=== PATIENT | female | born 1955 | race Two or more races ===

== ENCOUNTER 2017-09-24 09:31 | Day surgery (SDC) | payer BC ==
[2017-09-22 10:48] VITALS: BMI 22.8
[~2017-09-24 09:31] MED LIST: LACTATED RINGERS 1,000 ML IV SCH; LIDOCAINE 1% 20 ML VIAL (10MG/ML) FOR IV START INTRADERMA PRN
[2017-09-24 10:12] VITALS: TEMP 98.7
[2017-09-24] MEDS ORDERED: SCOPOLAMINE 1.5MG/72HR PATCH TRANSDERM ONE (10:36)
[2017-09-24] MEDS ORDERED: DEXAMETHASONE SOD PHOS (MDV) 100 MG/10 ML VIAL IVP ONE (10:37)
[2017-09-24] MEDS ORDERED: ONDANSETRON 4 MG/2 ML VIAL IVP ONE (10:38)
[2017-09-24] MEDS ORDERED: PROPOFOL 10 MG/ML 20 ML VIAL IV ONE (11:26)
[2017-09-24] MEDS ORDERED: LIDOCAINE 1% INJ 10MG/ML (20 ML MDV) ONE (11:26)
--- NOTE | 2017-09-24 11:34 | P.GSHP ---
History of Present Illness H&P Date: 09/24/17 Chief Complaint: Screening colonoscopy This is a 62-year-old female referred from Eduard Diez. Patient rents today for screening colonoscopy. Patient denies any significant GI complaints. Past Medical History Past Medical History: No Reported History Additional Past Medical History / Comment(s): seasonal allergies, past hx of glaucoma, no longer needing rx History of Any Multi-Drug Resistant Organisms: None Reported Past Surgical History: Breast Surgery, Tubal Ligation Additional Past Surgical History / Comment(s): nasal surgery polyps removed, benign aria breast bx, D&C Past Anesthesia/Blood Transfusion Reactions: No Reported Reaction Smoking Status: Current every day smoker - Past Family History Mother Family Medical History: Deep Vein Thrombosis (DVT) Medications and Allergies Home Medications Medication Instructions Recorded Confirmed Type Loratadine [Alavert] 10 mg PO DAILY 12/23/14 09/24/17 History PARoxetine [Paxil] 20 mg PO QAM 12/23/14 09/24/17 History Allergies Allergy/AdvReac Type Severity Reaction Status Date / Time gatifloxacin [From Tequin] Allergy ruptured Verified 09/22/17 10:41 tendon Penicillins Allergy Rash/Hives Verified 09/22/17 10:41 Surgical - Exam Vital Signs Temp Pulse Resp BP Pulse Ox 98.7 F 63 16 126/77 100 09/24/17 10:10 09/24/17 10:10 09/24/17 10:10 09/24/17 10:10 09/24/17 10:10 - General well developed, no distress - Eyes PERRL - ENT normal pinna - Neck no masses - Respiratory normal expansion - Cardiovascular Rhythm: regular - Abdomen Abdomen: soft, non tender Assessment and Plan Assessment: We'll perform screening colonoscopy
--- NOTE | 2017-09-24 11:54 | P.OP ---
Date of Procedure: 09/24/17 Preoperative Diagnosis: Screening colonoscopy Postoperative Diagnosis: Diverticulosis Right colon polyp External hemorrhoids Procedure(s) Performed: Colonoscopy Anesthesia: MAC Surgeon: Basim Wilson Pathology: other (Right colon) Condition: stable Disposition: PACU Description of Procedure: The patient's placed on the endoscopy table in the lateral position. She received IV sedation. Digital rectal exam was performed which revealed external hemorrhoids.. The flexible colonoscope placed patient anus passed throughout the entire colon. The ileocecal valve was visualized. Cecum appeared normal. In the right colon was small polyp was removed the forcep. The scope was withdrawn remainder the transverse colon appeared normal. In the descending; was mild diverticular changes. The scope was brought back the rectum and this appeared normal. Scope was withdrawn for patient.
[2017-09-24 12:00] VITALS: RESP 18
[2017-09-24 12:29] VITALS: BP 126/59; PULSE 62
== END 2017-09-24 12:47 | disposition home or self-care (01) ==
LOC: ORWHC2ENDO 09:31
PROVIDERS: ATTEND Surgery
DX: Z12.11 Encounter for screening for malignant neoplasm of colon (principal); K57.30 Diverticulosis of large intestine without perforation or abscess without bleeding; K63.5 Polyp of colon; K64.4 Residual hemorrhoidal skin tags; E78.5 Hyperlipidemia, unspecified; K21.9 Gastro-esophageal reflux disease without esophagitis; J30.2 Other seasonal allergic rhinitis; Z98.51 Tubal ligation status; Z79.899 Other long term (current) drug therapy; F17.200 Nicotine dependence, unspecified, uncomplicated; Z88.1 Allergy status to other antibiotic agents; Z88.0 Allergy status to penicillin
CPT/HCPCS: 88305; 45380; J2405; J2001; J1100; J2704

== ENCOUNTER 2021-10-19 17:57 | Observation (INO) | payer BC, MEDICARE ==
[2021-10-19] MEDS ORDERED: ASPIRIN 81 MG PO STA (19:27)
[2021-10-19 19:54] LABS: Basophils % (A) 1 %; Eosinophils # (A) 0.3 k/uL (0-0.7); Eosinophils % (A) 3 %; HCT 44.4 % (34.0-46.0); HGB 14.3 gm/dL (11.4-16.0); Lymphocytes # (A) 1.7 k/uL (1.0-4.8); Lymphocytes % (A) 18 %; MCH 30.2 pg (25.0-35.0); MCHC 32.2 g/dL (31.0-37.0); MCV 93.8 fL (80.0-100.0); Mean Platelet Volume 7.3; Monocytes # (A) 0.5 k/uL (0-1.0); Monocytes % (A) 5 %; Neutrophils # (A) 6.5 k/uL (1.3-7.7); Neutrophils % (A) 72 %; Platelet Count 224 k/uL (150-450); RBC 4.74 m/uL (3.80-5.40); RDW 12.3 % (11.5-15.5); WBC 9.1 k/uL (3.8-10.6)
[2021-10-19 20:04] LABS: Albumin 4.6 g/dL (3.5-5.0); Calcium 9.8 mg/dL (8.4-10.2); Potassium 4.4 mmol/L (3.5-5.1); Total Bilirubin 0.5 mg/dL (0.2-1.3); Total Protein 7.5 g/dL (6.3-8.2)
--- NOTE | 2021-10-19 20:12 | XR ---
EXAMINATION TYPE: XR chest 2V DATE OF EXAM: 10/19/2021 8:05 PM COMPARISON:None CLINICAL INDICATION:Female, 66 years old with history of Chest Pain; TECHNIQUE: Frontal and lateral views of the chest. FINDINGS: Lungs/Pleura: There is no evidence of pleural effusion, focal consolidation, or pneumothorax. Pulmonary vascularity: Unremarkable. Heart/mediastinum: Cardiomediastinal silhouette is unremarkable. Musculoskeletal: No acute osseous pathology. IMPRESSION: No acute cardiopulmonary disease/process.
[2021-10-19 20:44] LABS: INR 0.9 (<1.2); Prothrombin Time 10.2 sec (9.0-12.0)
[2021-10-19 20:51] LABS: Partial Thromboplastin Time 21.8 sec (22.0-30.0)
[2021-10-19] MEDS ORDERED: NALOXONE 0.4 MG/ML 1 ML VIAL IV PRN (22:26)
--- NOTE | 2021-10-19 22:35 | ED ---
General Adult HPI - General Chief complaint: Chest Pain Stated complaint: Chest pain,ear pain Time Seen by Provider: 10/19/21 19:26 Source: patient, RN notes reviewed, old records reviewed Mode of arrival: ambulatory Limitations: no limitations - History of Present Illness Initial comments: Patient is a 66-year-old female with past medical history remarkable for tobacco use, who presents emergency Department complaining of acute onset of chest pain. It occurred at approximate 5 PM. I evaluated the patient approximate 7:30 PM after she was placed in a room. She scribes the pain as left-sided, sharp and throbbing that radiated to her bilateral neck. Denies any radiation of left shoulder back. Denies any shortness of breath. The pain lasted on and off for 30 minutes and then self resolved. Denies any cough, fevers, abdominal pain, nausea, vomiting. Denies any lightheadedness. Has no other acute complaint at this time. His no known cardiac history, however states she has had multiple stress tests in the past but has been quite some years. Presents to the emergency department over concern for the chest pain. I evaluated the patient when she was placed in a room.Patient states her chest pain is currently resolved. - Related Data Home Medications Medication Instructions Recorded Confirmed Loratadine [Alavert] 10 mg PO DAILY 12/23/14 10/19/21 PARoxetine [Paxil] 20 mg PO DAILY 12/23/14 10/19/21 Cholecalciferol [Vitamin D3 (25 25 mcg PO DAILY 10/19/21 10/19/21 Mcg = 1000 Iu)] Fenofibrate Nanocrystallized 145 mg PO DAILY 10/19/21 10/19/21 [Fenofibrate] Omeprazole Magnesium [PriLOSEC OTC] 20 mg PO DAILY 10/19/21 10/19/21 Oxybutynin Chloride [Ditropan] 5 mg PO DAILY 10/19/21 10/19/21 Allergies Allergy/AdvReac Type Severity Reaction Status Date / Time gatifloxacin [From Tequin] Allergy ruptured Verified 10/19/21 20:50 tendon Penicillins Allergy Rash/Hives Verified 10/19/21 20:50 [id number] Reductase Allergy Unknown Verified 10/19/21 20:50 Inhibitor Review of Systems ROS Statement: Those systems with pertinent positive or pertinent negative responses have been documented in the HPI. Review of Systems: CONST: Denies fever EYES: Denies blurry vision ENT: Denies nasal congestion C/V: Endorses resolved chest pain. RESP: Denies shortness of breath GI: Denies abdominal pain : Denies dysuria SKIN: Denies rash. MSK: Denies joint pain. NEURO: Denies headache ROS Other: All systems not noted in ROS Statement are negative. Past Medical History Past Medical History: No Reported History Additional Past Medical History / Comment(s): seasonal allergies, past hx of glaucoma, no longer needing rx History of Any Multi-Drug Resistant Organisms: None Reported Past Surgical History: Breast Surgery, Tubal Ligation Additional Past Surgical History / Comment(s): nasal surgery polyps removed, benign aria breast bx, D&C Past Anesthesia/Blood Transfusion Reactions: No Reported Reaction Past Psychological History: Panic Disorder Smoking Status: Current every day smoker Past Alcohol Use History: None Reported Past Drug Use History: None Reported - Past Family History Mother Family Medical History: Deep Vein Thrombosis (DVT) General Exam - General Exam Comments Initial Comments: General: Appears in no acute distress. HEAD: Normal with no signs of head trauma. EYES: PERRLA, EOMI, conjunctiva normal, no discharge. ENT: Hearing grossly intact, normal oropharynx. RESPIRATORY: Clear breath sounds bilaterally. No wheezes, rales, or rhonchi. C/V: Regular rate and rhythm. S1 and S2 auscultated, no edema, peripheral pul ses 2+ and intact throughout ABD: Abd is soft, nontender, nondistended EXT: Normal range of motion, no obvious deformity SKIN: No rashes or lesions observed on exposed skin. NEURO: Alert and oriented 4. Limitations: no limitations Course Vital Signs 10/19/21 10/19/21 10/19/21 18:27 19:55 20:30 Temperature 98.9 F Pulse Rate 75 63 81 Pulse Rate [ 65 Gate Clerk ] Respiratory 18 20 19 Rate Blood Pressure 142/90 135/72 125/64 O2 Sat by Pulse 96 98 96 Oximetry 10/19/21 21:45 Temperature Pulse Rate 76 Pulse Rate [ Gate Clerk ] Respiratory 19 Rate Blood Pressure 131/56 O2 Sat by Pulse 96 Oximetry Medical Decision Making - Medical Decision Making Based on patient's presentation and physical exam, I'm concerned for cardio pulmonary process for current symptoms, cannot rule out ACS. Chest pain has since resolved though. We will obtain a cardiac workup including EKG, chest x-ray, basic labs. She'll be given 324 mg of aspirin. She was in agreement this plan. EKG showed no signs of acute ischemia. Chest x-ray revealed no acute cardiopulmonary process. Laboratory studies are remarkable for a negative troponin, negative Covid sob. Creatinine is slightly elevated to 1.08. Remainder of the labs are unremarkable. Vital sensory and stable throughout her stay in the emergency department. On reevaluation, patient remains stable. Patient's heart score is moderate at 5. I did offer observation admission for trending troponins and telemetry monitoring which she accepted. Patient was therefore admitted in stable condition to observation. Cardiology was consulted. I ordered an echo. I spoke with the admitting team under Dr. Plunkett who accepted the admission. - Lab Data Result diagrams: 10/19/21 19:42 10/19/21 19:42 Lab Results 10/19/21 10/19/21 10/19/21 Range/Units 19:42 19:42 19:42 WBC 9.1 (3.8-10.6) k/uL RBC 4.74 (3.80-5.40) m/uL Hgb 14.3 (11.4-16.0) gm/dL Hct 44.4 (34.0-46.0) % MCV 93.8 (80.0-100.0) fL MCH 30.2 (25.0-35.0) pg MCHC 32.2 (31.0-37.0) g/dL RDW 12.3 (11.5-15.5) % Plt Count 224 (150-450) k/uL MPV 7.3 Neutrophils % 72 % Lymphocytes % 18 % Monocytes % 5 % Eosinophils % 3 % Basophils % 1 % Neutrophils # 6.5 (1.3-7.7) k/uL Lymphocytes # 1.7 (1.0-4.8) k/uL Monocytes # 0.5 (0-1.0) k/uL Eosinophils # 0.3 (0-0.7) k/uL Basophils # 0.0 (0-0.2) k/uL PT 10.2 (9.0-12.0) sec INR 0.9 (<1.2) APTT 21.8 L (22.0-30.0) sec Sodium 140 (137-145) mmol/L Potassium 4.4 (3.5-5.1) mmol/L Chloride 104 (98-107) mmol/L Carbon Dioxide 26 (22-30) mmol/L Anion Gap 10 mmol/L BUN 16 (7-17) mg/dL Creatinine 1.08 H (0.52-1.04) mg/dL Est GFR (CKD-EPI)AfAm 62 (>60 ml/min/1.73 sqM) Est GFR (CKD-EPI)NonAf 54 (>60 ml/min/1.73 sqM) Glucose 104 H (74-99) mg/dL Calcium 9.8 (8.4-10.2) mg/dL Magnesium 2.0 (1.6-2.3) mg/dL Total Bilirubin 0.5 (0.2-1.3) mg/dL AST 29 (14-36) U/L ALT 23 (4-34) U/L Alkaline Phosphatase 67 (38-126) U/L Troponin I (0.000-0.034) ng/mL Total Protein 7.5 (6.3-8.2) g/dL Albumin 4.6 (3.5-5.0) g/dL Coronavirus (PCR) (Not Detectd) 10/19/21 10/19/21 Range/Units 19:42 21:35 WBC (3.8-10.6) k/uL RBC (3.80-5.40) m/uL Hgb (11.4-16.0) gm/dL Hct (34.0-46.0) % MCV (80.0-100.0) fL MCH (25.0-35.0) pg MCHC (31.0-37.0) g/dL RDW (11.5-15.5) % Plt Count (150-450) k/uL MPV Neutrophils % % Lymphocytes % % Monocytes % % Eosinophils % % Basophils % % Neutrophils # (1.3-7.7) k/uL Lymphocytes # (1.0-4.8) k/uL Monocytes # (0-1.0) k/uL Eosinophils # (0-0.7) k/uL Basophils # (0-0.2) k/uL PT (9.0-12.0) sec INR (<1.2) APTT (22.0-30.0) sec Sodium (137-145) mmol/L Potassium (3.5-5.1) mmol/L Chloride (98-107) mmol/L Carbon Dioxide (22-30) mmol/L Anion Gap mmol/L BUN (7-17) mg/dL Creatinine (0.52-1.04) mg/dL Est GFR (CKD-EPI)AfAm (>60 ml/min/1.73 sqM) Est GFR (CKD-EPI)NonAf (>60 ml/min/1.73 sqM) Glucose (74-99) mg/dL Calcium (8.4-10.2) mg/dL Magnesium (1.6-2.3) mg/dL Total Bilirubin (0.2-1.3) mg/dL AST (14-36) U/L ALT (4-34) U/L Alkaline Phosphatase (38-126) U/L Troponin I <0.012 (0.000-0.034) ng/mL Total Protein (6.3-8.2) g/dL Albumin (3.5-5.0) g/dL Coronavirus (PCR) Not Detected (Not Detectd) - EKG Data -: EKG Interpreted by Me EKG Comments: 12-lead Electrocardiogram Interpretation Note EKG was reviewed and interpreted by myself. 12-lead ECG performed at 1838 is interpreted by me as revealing normal sinus rhythm at a rate of 64 beats per minute. [place] is normal. MI interval is 162 ms, QRS duration is 80 ms, QTc is 420 ms.. There were no ST or T wave abnormalities to suggest myocardial ischemia or injury. R wave progression across the precordium was satisfactory. By my interpretation this EKG is non-diagnostic for acute ischemia. Disposition Clinical Impression: Chest pain Disposition: ADMITTED IP TO THIS HOSP Condition: Stable Referrals: Jori Boyd MD [Primary Care Provider] - 1-2 days
[2021-10-19] MEDS: HEPARIN SODIUM,PORCINE/PF 5,000 UNIT/0.5 ML SYRINGE SQ SCH (23:42)
[2021-10-20 04:11] VITALS: RESP 18
[2021-10-20 04:34] LABS: Basophils # (A) 0.1 k/uL (0-0.2); Basophils % (A) 1 %; Eosinophils # (A) 0.3 k/uL (0-0.7); Eosinophils % (A) 4 %; HGB 13.7 gm/dL (11.4-16.0); Lymphocytes % (A) 29 %; MCH 30.6 pg (25.0-35.0); MCHC 32.6 g/dL (31.0-37.0); Mean Platelet Volume 7.5; Monocytes # (A) 0.5 k/uL (0-1.0); Monocytes % (A) 7 %; Neutrophils # (A) 3.9 k/uL (1.3-7.7); Neutrophils % (A) 57 %; Platelet Count 198 k/uL (150-450); RBC 4.47 m/uL (3.80-5.40); RDW 12.5 % (11.5-15.5); WBC 6.9 k/uL (3.8-10.6)
[2021-10-20 04:45] LABS: Calcium 9.1 mg/dL (8.4-10.2); Potassium 4.1 mmol/L (3.5-5.1)
[2021-10-20] MEDS ORDERED: PANTOPRAZOLE 40 MG TABLET PO SCH (07:30)
[2021-10-20 08:39] VITALS: BP 126/64; PULSE 68; TEMP 99.1
[2021-10-20] MEDS ORDERED: LORATADINE 10 MG TAB PO SCH (09:00)
[2021-10-20] MEDS ORDERED: PARoxetine 20 MG TAB PO SCH (09:00)
[2021-10-20] MEDS ORDERED: OXYBUTYNIN CHLORIDE 5 MG TAB PO SCH (09:00)
--- NOTE | 2021-10-20 10:19 | P.CRDCN ---
History of Present Illness Consult date: 10/20/21 Consult reason: chest pain History of present illness: The patient is a 66-year-old female with past medical history of hypertriglyceridemia, obstructive sleep apnea, and current smoker, who presented to the emergency room with new onset of chest discomfort. She states this pain was midsternal and sharp in nature. She states this did radiate up her neck bilaterally. She states she had had this pain previously, which prompted a cardiac workup approximately 15 years prior. Her reasoning for presenting to the emergency room if it did not resolve as it did previously. She denies any associated shortness of breath. No dizziness, lightheadedness, or diaphoresis. DIAGNOSTICS: EKG 2 show sinus mechanism without ST or T-wave abnormalities Troponins negative 3 Chest x-ray shows no acute cardiopulmonary process Laboratory data: CBC 6.9, hemoglobin 13.7, hematocrit 42.0, platelet 198, sodium 138, potassium 4.1, BUN 17, creatinine 0.90, magnesium 2.0, AST 29, ALT 23, doe virus testing negative Echocardiogram reveals normal LV function without valvular abnormalities PAST MEDICAL HISTORY: Obstructive sleep apnea, hypertriglyceridemia, current 1 pack per day smoker REVIEW OF SYSTEMS: No fever or chills. No cough or expectoration. No diaphoresis. Patient denies headache, dizziness, blurred vision, double vision. Patient denies any stomach discomfort. No nausea, vomiting. No hematochezia. No hematemesis. Denies any black stools or blood in his stools. Denies dysuria or hematuria. No muscle weakness or numbness. No shortness of breath. No orthopnea. No heart racing or fluttering. No recurrent chest pain PHYSICAL EXAMINATION: This is a 66-year-old female in no apparent distress at the time of my examination. HEENT: Head is atraumatic, normocephalic. Pupils are equal, round. Sclerae anicteric. Conjunctivae are clear. Mucous membranes of the mouth are moist. Neck is supple. There is no jugular venous distention. No carotid bruit is heard. CHEST EXAMINATION: Lungs are diminished to auscultation. No chest wall te nderness is noted on palpation or with deep breathing. HEART EXAMINATION: Heart regular rate and rhythm. S1, S2 heard. No murmurs, gallops or rub. ABDOMEN: Soft, nontender. Bowel sounds are heard. No organomegaly noted. EXTREMITIES: 2+ peripheral pulses with no evidence of peripheral edema and no calf tenderness noted. NEUROLOGIC EXAMINATION: Patient is awake, alert and oriented x3. FINAL ASSESSMENT AND PLAN: Chest pain, atypical Current smoker Hypertriglyceridemia, currently on fenofibrate History of statin intolerance PLAN: Hemoglobin A1C Lipid profile Start low dose rosuvastatin as she has a history of intolerance to simvastatin and atorvastatin Patient may be discharged from the cardiology perspective She will followup outpatient in 2 weeks The patient has been seen and evaluated by content writer and coordinating physician. Plan of care has been reviewed and agreed upon by Dr Avina. sharp pain, radiates up carotid Past Medical History Past Medical History: No Reported History, Sleep Apnea/CPAP/BIPAP Additional Past Medical History / Comment(s): seasonal allergies, past hx of glaucoma, no longer needing rx, uses CPAP History of Any Multi-Drug Resistant Organisms: None Reported Past Surgical History: Breast Surgery, Tubal Ligation Additional Past Surgical History / Comment(s): nasal surgery polyps removed, benign aria breast bx, D&C Past Anesthesia/Blood Transfusion Reactions: No Reported Reaction Past Psychological History: Panic Disorder Smoking Status: Current every day smoker Past Alcohol Use History: Occasional Additional Past Alcohol Use History / Comment(s): SMOKES 1PPD FROM AGE 16 Past Drug Use History: None Reported - Past Family History Mother Family Medical History: Deep Vein Thrombosis (DVT) Medications and Allergies Home Medications Medication Instructions Recorded Confirmed Type Loratadine [Alavert] 10 mg PO DAILY 12/23/14 10/19/21 History PARoxetine [Paxil] 20 mg PO DAILY 12/23/14 10/19/21 History Cholecalciferol [Vitamin D3 (25 25 mcg PO DAILY 10/19/21 10/19/21 History Mcg = 1000 Iu)] Fenofibrate Nanocrystallized 145 mg PO DAILY 10/19/21 10/19/21 History [Fenofibrate] Omeprazole Magnesium [PriLOSEC OTC] 20 mg PO DAILY 10/19/21 10/19/21 History Oxybutynin Chloride [Ditropan] 5 mg PO DAILY 10/19/21 10/19/21 History Rosuvastatin Calcium [Crestor] 10 mg PO DAILY #30 tab 10/20/21 Rx Allergies Allergy/AdvReac Type Severity Reaction Status Date / Time gatifloxacin [From Tequin] Allergy ruptured Verified 10/19/21 20:50 tendon Penicillins Allergy Rash/Hives Verified 10/19/21 20:50 [id number] Reductase Allergy Unknown Verified 10/19/21 20:50 Inhibitor Physical Exam Vitals: Vital Signs Temp Pulse Pulse Pulse Resp BP BP 10/20/21 07:00 99.1 F 68 18 126/64 10/20/21 02:35 98.7 F 77 18 106/49 10/20/21 02:00 66 16 10/19/21 23:43 66 16 10/19/21 23:36 98.2 F 66 16 97/45 10/19/21 22:43 80 19 105/56 10/19/21 21:45 76 19 131/56 10/19/21 20:30 81 19 125/64 10/19/21 19:55 63 65 20 135/72 10/19/21 18:27 98.9 F 75 18 142/90 Pulse Ox 10/20/21 07:00 98 10/20/21 02:35 98 10/20/21 02:00 10/19/21 23:43 10/19/21 23:36 97 10/19/21 22:43 97 10/19/21 21:45 96 10/19/21 20:30 96 10/19/21 19:55 98 10/19/21 18:27 96 Intake and Output 10/19/21 10/20/21 10/20/21 22:59 06:59 14:59 Intake Total 0 Balance 0 Intake: Oral 0 Other: Voiding Method Toilet # Voids 1 Weight 83.007 kg 83.007 kg Results 10/20/21 03:43 10/20/21 03:43 Cardiac Enzymes 10/19/21 10/19/21 10/19/21 Range/Units 19:42 19:42 23:34 AST 29 (14-36) U/L Troponin I <0.012 <0.012 (0.000-0.034) ng/mL 10/20/21 Range/Units 03:43 AST (14-36) U/L Troponin I <0.012 (0.000-0.034) ng/mL Coagulation 10/19/21 Range/Units 19:42 PT 10.2 (9.0-12.0) sec APTT 21.8 L (22.0-30.0) sec CBC 10/19/21 10/20/21 Range/Units 19:42 03:43 WBC 9.1 6.9 (3.8-10.6) k/uL RBC 4.74 4.47 (3.80-5.40) m/uL Hgb 14.3 13.7 (11.4-16.0) gm/dL Hct 44.4 42.0 (34.0-46.0) % Plt Count 224 198 (150-450) k/uL Comprehensive Metabolic Panel 10/19/21 10/20/21 Range/Units 19:42 03:43 Sodium 140 138 (137-145) mmol/L Potassium 4.4 4.1 (3.5-5.1) mmol/L Chloride 104 104 (98-107) mmol/L Carbon Dioxide 26 28 (22-30) mmol/L BUN 16 17 (7-17) mg/dL Creatinine 1.08 H 0.90 (0.52-1.04) mg/dL Glucose 104 H 106 H (74-99) mg/dL Calcium 9.8 9.1 (8.4-10.2) mg/dL AST 29 (14-36) U/L ALT 23 (4-34) U/L Alkaline Phosphatase 67 (38-126) U/L Total Protein 7.5 (6.3-8.2) g/dL Albumin 4.6 (3.5-5.0) g/dL Current Medications Generic Name Dose Route Start Last Admin Trade Name Freq PRN Reason Stop Dose Admin Heparin Sodium (Porcine) 5,000 unit 10/20/21 00:00 10/19/21 23:42 Heparin Sodium,Porcine/Pf 5,000 Unit/0.5 Ml Syringe SQ 5,000 unit Q8HR CRAIG Administration Loratadine 10 mg 10/20/21 09:00 Loratadine 10 Mg Tab PO DAILY [facility] Naloxone HCl 0.2 mg 10/19/21 22:26 Naloxone 0.4 Mg/Ml 1 Ml Vial IV Q2M PRN Opioid Reversal Oxybutynin Chloride 5 mg 10/20/21 09:00 Oxybutynin Chloride 5 Mg Tab PO DAILY [facility] Pantoprazole Sodium 40 mg 10/20/21 07:30 Pantoprazole 40 Mg Tablet PO AC-BRKFST [facility] Paroxetine HCl 20 mg 10/20/21 09:00 Paroxetine 20 Mg Tab PO DAILY CRAIG Intake and Output 10/19/21 10/20/21 10/20/21 22:59 06:59 14:59 Intake Total 0 Balance 0 Intake: Oral 0 Other: Voiding Method Toilet # Voids 1 Weight 83.007 kg 83.007 kg 10/20/21 03:43 10/20/21 03:43
[2021-10-20] MEDS: HEPARIN SODIUM,PORCINE/PF 5,000 UNIT/0.5 ML SYRINGE SQ SCH (11:19)
--- NOTE | 2021-10-20 12:37 | ECHOF ---
Referral Reason:chest pain MEASUREMENTS -------- HEIGHT: 172.7 cm WEIGHT: 83.0 kg BP: 106/49 IVSd: 1.1 cm (0.6 - 1.1) LVIDd: 4.5 cm (3.9 - 5.3) LVPWd: 1.1 cm (0.6 - 1.1) EDV(Teich): 92 ml IVSs: 1.3 cm LVIDs: 3.4 cm LVPWs: 1.5 cm %IVS Thck: 18 % ESV(Teich): 49 ml EF(Teich): 47 % %FS: 23 % SV(Teich): 43 ml LA Diam: 3.6 cm (2.7 - 3.8) RVIDd: 3.2 cm (< 3.3) LALs A4C: 5.2 cm LAAs A4C: 18.0 cm LAESV A-L A4C: 53 ml LAESV MOD A4C: 50 ml LALs A2C: 5.0 cm LAAs A2C: 17.0 cm LAESV A-L A2C: 49 ml LAESV MOD A2C: 46 ml LAESV(A-L): 52 ml LAESV Index (A-L): 26.57 ml/m Ao Diam: 3.1 cm (2.0 - 3.7) AV Cusp: 1.9 cm (1.5 - 2.6) EPSS: 0.3 cm MV E Riki: 1.07 m/s MV DecT: 253 ms MV Dec Letcher: 4.2 m/s MV A Riki: 1.18 m/s MV E/A Ratio: 0.91 MV PHT: 74 ms AV Vmax: 1.37 m/s AV maxP.47 mmHg TR Vmax: 2.39 m/s TR maxP.92 mmHg RAP: 5.00 mmHg RVSP: 27.92 mmHg MV EF SLOPE: 68.83 mm/s (70 - 150) MV EXCURSION: 15.62 mm (> 18.000) FINDINGS -------- Sinus rhythm. This was a technically adequate study. The left ventricular size is normal. There is borderline concentric left ventricular hypertrophy. Overall left ventricular systolic function is normal with, an EF between 60 - 65 %. The right ventricle is normal in size. Normal LA size by volume 22+/-6 ml/m2. The right atrium is normal in size. Interatrial and interventricular septum intact. The aortic valve is trileaflet, and appears structurally normal. No aortic stenosis or regurgitation. Mild mitral regurgitation is present. Mild tricuspid regurgitation present. Right ventricular systolic pressure is normal at < 35 mmHg. The pulmonic valve is normal. The aortic root size is normal. IVC Not well visulized. There is no pericardial effusion. CONCLUSIONS -------- 1. The left ventricular size is normal. 2. There is borderline concentric left ventricular hypertrophy. 3. Overall left ventricular systolic function is normal with, an EF between 60 - 65 %. 4. The aortic valve is trileaflet, and appears structurally normal. No aortic stenosis or regurgitati on. 5. Mild mitral regurgitation is present. 6. Mild tricuspid regurgitation present. 7. There is no pericardial effusion. COUNTER CASER: Sanjuanita Rivas RDCS
--- NOTE | 2021-10-20 14:03 | P.HPIM ---
History of Present Illness H&P Date: 10/20/21 This will provide both H&P and discharge summary This is a 66-year-old pleasant female, patient of Dr. Boyd. History of obstructive sleep apnea, current tobacco use, hypertriglyceridemia, who was seen in emergency room secondary to new onset of chest discomfort. This is noted in the midsternal region, radiating to the neck area. Patient has minimal cough, no fever no chills, he had no prior history of CAD, however she had a cardiac workup approximately 15 years ago which turned out to be okay. Patient's pain lasted 30 minutes, this was gradually dissipated, and started when she was in the bathroom. She had received a call with vaccination, with the first to see this, January 2021, In the emergency room, EKG 2 serially done, no acute changes, troponin 3, negative, will repeat PCR negative, chest x-ray is unremarkable. Consult made with cardiology. Patient denies any history of PE DVT, no COPD, that's formally diagnosed to her, and no history of CHF. Review of Systems Constitutional: Reports as per HPI, Denies anorexia, Denies chills, Denies chronic headaches, Denies chronic pain, Denies daytime sleepiness, Denies fatigue, Denies fever, Denies lethargy, Denies malaise, Denies night sweats, Denies poor appetite, Denies sweats, Denies weakness, Denies weight gain, Denies weight loss Ears, nose, mouth and throat: Reports as per HPI, Denies epistaxis, Denies odynophagia, Denies vertigo Cardiovascular: Reports as per HPI Respiratory: Reports congestion, Denies cough, Denies cough with sputum, Denies dyspnea, Denies hemoptysis, Denies home oxygen, Denies pain on inspiration Gastrointestinal: Reports as per HPI, Denies constipation, Denies hematemesis, Denies hematochezia, Denies nausea, Denies vomiting Genitourinary: Reports as per HPI Menstruation: Reports as per HPI, Reports postmenopausal Musculoskeletal: Reports as per HPI, Denies arm numbness/tingling, Denies atrophy, Denies low back pain, Denies myalgias Integumentary: Reports as per HPI Neurological: Reports as per HPI, Denies aphasia, Denies ataxia, Denies balance difficulties, Denies burning pain, Denies change in mentation, Denies change in smell/taste, Denies change in speech, Denies confusion, Denies convulsions, Denies double vision, Denies gait dysfunction, Denies head injury, Denies headaches, Denies hearing difficulties, Denies lack of coordination, Denies loss of vision, Denies memory loss, Denies migraines, Denies motor disturbance, Denies numbness, Denies paralysis, Denies paresthesias, Denies seizures, Denies sensory deficit, Denies spasticity, Denies syncope, Denies tic, Denies tingling, Denies transient paralysis, Denies tremors, Denies vertigo, Denies weakness, Denies visual changes Psychiatric: Reports as per HPI Endocrine: Reports as per HPI, Denies cold intolerance, Denies deepening of the voice, Denies excessive sweating, Denies excessive thirst, Denies fatigue, Denies flushing, Denies heat intolerance, Denies high blood sugars, Denies increase in ring/shoe/hat size, Denies low blood sugars, Denies nocturia, Denies palpitations, Denies polydipsia, Denies polyphagia, Denies polyuria, Denies proptosis, Denies recent glucocorticoid use, Denies thyroid mass, Denies weight change Past Medical History Past Medical History: No Reported History, Sleep Apnea/CPAP/BIPAP Additional Past Medical History / Comment(s): seasonal allergies, past hx of glaucoma, no longer needing rx, uses CPAP History of Any Multi-Drug Resistant Organisms: None Reported Past Surgical History: Breast Surgery, Tubal Ligation Additional Past Surgical History / Comment(s): nasal surgery polyps removed, benign aria breast bx, D&C Past Anesthesia/Blood Transfusion Reactions: No Reported Reaction Past Psychological History: Panic Disorder Smoking Status: Current every day smoker Past Alcohol Use History: Occasional Additional Past Alcohol Use History / Comment(s): SMOKES 1PPD FROM AGE 16 Past Drug Use History: None Reported Additional History: Mother with hypertension, dementia, father has depression, 2 brothers depression and anxiety, 2 sisters depression and anxiety, no daughters, one son healthy. No history of cancer, diabetes have retention, or CVA - Past Family History Mother Family Medical History: Deep Vein Thrombosis (DVT) Medications and Allergies Home Medications Medication Instructions Recorded Confirmed Type Loratadine [Alavert] 10 mg PO DAILY 12/23/14 10/19/21 History PARoxetine [Paxil] 20 mg PO DAILY 12/23/14 10/19/21 History Cholecalciferol [Vitamin D3 (25 25 mcg PO DAILY 10/19/21 10/19/21 History Mcg = 1000 Iu)] Fenofibrate Nanocrystallized 145 mg PO DAILY 10/19/21 10/19/21 History [Fenofibrate] Omeprazole Magnesium [PriLOSEC OTC] 20 mg PO DAILY 10/19/21 10/19/21 History Oxybutynin Chloride [Ditropan] 5 mg PO DAILY 10/19/21 10/19/21 History Rosuvastatin Calcium [Crestor] 10 mg PO DAILY #30 tab 10/20/21 Rx Allergies Allergy/AdvReac Type Severity Reaction Status Date / Time gatifloxacin [From Tequin] Allergy ruptured Verified 10/19/21 20:50 tendon Penicillins Allergy Rash/Hives Verified 10/19/21 20:50 [id number] Reductase Allergy Unknown Verified 10/19/21 20:50 Inhibitor Physical Exam Vitals: Vital Signs Temp Pulse Pulse Pulse Resp BP BP 10/20/21 07:00 99.1 F 68 18 126/64 10/20/21 02:35 98.7 F 77 18 106/49 10/20/21 02:00 66 16 10/19/21 23:43 66 16 10/19/21 23:36 98.2 F 66 16 97/45 10/19/21 22:43 80 19 105/56 10/19/21 21:45 76 19 131/56 10/19/21 20:30 81 19 125/64 10/19/21 19:55 63 65 20 135/72 10/19/21 18:27 98.9 F 75 18 142/90 Pulse Ox 10/20/21 07:00 98 10/20/21 02:35 98 10/20/21 02:00 10/19/21 23:43 10/19/21 23:36 97 10/19/21 22:43 97 10/19/21 21:45 96 10/19/21 20:30 96 10/19/21 19:55 98 10/19/21 18:27 96 Intake and Output 10/19/21 10/20/21 10/20/21 22:59 06:59 14:59 Intake Total 0 Balance 0 Intake: Oral 0 Other: Voiding Method Toilet # Voids 1 Weight 83.007 kg 83.007 kg - Constitutional General appearance: average body habitus, cooperative, no acute distress - EENT Eyes: EOMI, PERRLA, dentition normal, normal appearance - Neck Neck: normal ROM - Respiratory Respiratory: bilateral: CTA, negative: diminished, dullness - Cardiovascular Rhythm: regular Heart sounds: normal: S1 Abnormal Heart Sounds: no systolic murmur, no diastolic murmur, no rub, no S3 Gallop, no S4 Gallop, no click, no other - Gastrointestinal General gastrointestinal: normal bowel sounds, soft - Integumentary Integumentary: normal, normal turgor - Musculoskeletal Musculoskeletal: gait normal, strength equal bilaterally - Psychiatric Psychiatric: A&O x's 3, appropriate affect, intact judgment & insight Results CBC & Chem 7: 10/20/21 03:43 10/20/21 03:43 Labs: Abnormal Lab Results - Last 24 Hours (Table) 10/19/21 10/19/21 10/20/21 Range/Units 19:42 19:42 03:43 APTT 21.8 L (22.0-30.0) sec Creatinine 1.08 H (0.52-1.04) mg/dL Glucose 104 H 106 H (74-99) mg/dL Laboratory Results WBC 6.9 k/uL (3.8-10.6) 10/20/21 03:43 RBC 4.47 m/uL (3.80-5.40) 10/20/21 03:43 Hgb 13.7 gm/dL (11.4-16.0) 10/20/21 03:43 Hct 42.0 % (34.0-46.0) 10/20/21 03:43 MCV 94.0 fL (80.0-100.0) 10/20/21 03:43 MCH 30.6 pg (25.0-35.0) 10/20/21 03:43 MCHC 32.6 g/dL (31.0-37.0) 10/20/21 03:43 RDW 12.5 % (11.5-15.5) 10/20/21 03:43 Plt Count 198 k/uL (150-450) 10/20/21 03:43 MPV 7.5 10/20/21 03:43 Neutrophils % 57 % 10/20/21 03:43 Lymphocytes % 29 % 10/20/21 03:43 Monocytes % 7 % 10/20/21 03:43 Eosinophils % 4 % 10/20/21 03:43 Basophils % 1 % 10/20/21 03:43 Neutrophils # 3.9 k/uL (1.3-7.7) 10/20/21 03:43 Lymphocytes # 2.0 k/uL (1.0-4.8) 10/20/21 03:43 Monocytes # 0.5 k/uL (0-1.0) 10/20/21 03:43 Eosinophils # 0.3 k/uL (0-0.7) 10/20/21 03:43 Basophils # 0.1 k/uL (0-0.2) 10/20/21 03:43 PT 10.2 sec (9.0-12.0) 10/19/21 19:42 INR 0.9 (<1.2) 10/19/21 19:42 APTT 21.8 sec (22.0-30.0) L 10/19/21 19:42 Sodium 138 mmol/L (137-145) 10/20/21 03:43 Potassium 4.1 mmol/L (3.5-5.1) 10/20/21 03:43 Chloride 104 mmol/L (98-107) 10/20/21 03:43 Carbon Dioxide 28 mmol/L (22-30) 10/20/21 03:43 Anion Gap 6 mmol/L 10/20/21 03:43 BUN 17 mg/dL (7-17) 10/20/21 03:43 Creatinine 0.90 mg/dL (0.52-1.04) 10/20/21 03:43 Est GFR (CKD-EPI)AfAm 78 (>60 ml/min/1.73 sqM) 10/20/21 03:43 Est GFR (CKD-EPI)NonAf 68 (>60 ml/min/1.73 sqM) 10/20/21 03:43 Glucose 106 mg/dL (74-99) H 10/20/21 03:43 Calcium 9.1 mg/dL (8.4-10.2) 10/20/21 03:43 Magnesium 2.0 mg/dL (1.6-2.3) 10/19/21 19:42 Total Bilirubin 0.5 mg/dL (0.2-1.3) 10/19/21 19:42 AST 29 U/L (14-36) 10/19/21 19:42 ALT 23 U/L (4-34) 10/19/21 19:42 Alkaline Phosphatase 67 U/L (38-126) 10/19/21 19:42 Troponin I <0.012 ng/mL (0.000-0.034) 10/20/21 03:43 Total Protein 7.5 g/dL (6.3-8.2) 10/19/21 19:42 Albumin 4.6 g/dL (3.5-5.0) 10/19/21 19:42 Coronavirus (PCR) Not Detected (Not Detectd) 10/19/21 21:35 Laboratory Results WBC 6.9 k/uL (3.8-10.6) 10/20/21 03:43 RBC 4.47 m/uL (3.80-5.40) 10/20/21 03:43 Hgb 13.7 gm/dL (11.4-16.0) 10/20/21 03:43 Hct 42.0 % (34.0-46.0) 10/20/21 03:43 MCV 94.0 fL (80.0-100.0) 10/20/21 03:43 MCH 30.6 pg (25.0-35.0) 10/20/21 03:43 MCHC 32.6 g/dL (31.0-37.0) 10/20/21 03:43 RDW 12.5 % (11.5-15.5) 10/20/21 03:43 Plt Count 198 k/uL (150-450) 10/20/21 03:43 MPV 7.5 10/20/21 03:43 Neutrophils % 57 % 10/20/21 03:43 Lymphocytes % 29 % 10/20/21 03:43 Monocytes % 7 % 10/20/21 03:43 Eosinophils % 4 % 10/20/21 03:43 Basophils % 1 % 10/20/21 03:43 Neutrophils # 3.9 k/uL (1.3-7.7) 10/20/21 03:43 Lymphocytes # 2.0 k/uL (1.0-4.8) 10/20/21 03:43 Monocytes # 0.5 k/uL (0-1.0) 10/20/21 03:43 Eosinophils # 0.3 k/uL (0-0.7) 10/20/21 03:43 Basophils # 0.1 k/uL (0-0.2) 10/20/21 03:43 PT 10.2 sec (9.0-12.0) 10/19/21 19:42 INR 0.9 (<1.2) 10/19/21 19:42 APTT 21.8 sec (22.0-30.0) L 10/19/21 19:42 D-Dimer 0.30 mg/L FEU (<0.60) 10/20/21 11:05 Sodium 138 mmol/L (137-145) 10/20/21 03:43 Potassium 4.1 mmol/L (3.5-5.1) 10/20/21 03:43 Chloride 104 mmol/L (98-107) 10/20/21 03:43 Carbon Dioxide 28 mmol/L (22-30) 10/20/21 03:43 Anion Gap 6 mmol/L 10/20/21 03:43 BUN 17 mg/dL (7-17) 10/20/21 03:43 Creatinine 0.90 mg/dL (0.52-1.04) 10/20/21 03:43 Est GFR (CKD-EPI)AfAm 78 (>60 ml/min/1.73 sqM) 10/20/21 03:43 Est GFR (CKD-EPI)NonAf 68 (>60 ml/min/1.73 sqM) 10/20/21 03:43 Glucose 106 mg/dL (74-99) H 10/20/21 03:43 Calcium 9.1 mg/dL (8.4-10.2) 10/20/21 03:43 Magnesium 2.0 mg/dL (1.6-2.3) 10/19/21 19:42 Total Bilirubin 0.5 mg/dL (0.2-1.3) 10/19/21 19:42 AST 29 U/L (14-36) 10/19/21 19:42 ALT 23 U/L (4-34) 10/19/21 19:42 Alkaline Phosphatase 67 U/L (38-126) 10/19/21 19:42 Troponin I <0.012 ng/mL (0.000-0.034) 10/20/21 03:43 Total Protein 7.5 g/dL (6.3-8.2) 10/19/21 19:42 Albumin 4.6 g/dL (3.5-5.0) 10/19/21 19:42 Coronavirus (PCR) Not Detected (Not Detectd) 10/19/21 21:35 Thrombosis Risk Factor Assmnt - Choose All That Apply Any of the Below Risk Factors Present?: Yes Each Factor Represents 1 point: Obesity (BMI >25) Other Risk Factors: Yes Each Risk Factor Represents 2 Points: Age 61-74 years Each Risk Factor Represents 3 Points: Family history of DVT/PE Other congenital or acquired thrombophilia - If yes, enter type in comment: No Thrombosis Risk Factor Assessment Total Risk Factor Score: 6 Thrombosis Risk Factor Assessment Level: High Risk Assessment and Plan Plan: 1. Atypical chest pain, currently vaccinated for coronavirus, needing a booster vaccination Patient has been tested Covid negative, troponins 3 are unremarkable normal, 2 EKGs serially normal, patient seen by cardiology, who recommended outpatient workup. Patient see Dr. avalos is noted patient to weeks, requiring outpatient echocardiogram, and most likely a stress test. D- dimer is negative #2, hyperlipidemia not on any statin at this time secondary to sensitivities or intolerances, Crestor 10 mg daily was initiated by cardiology, lipid panel to be done as an outpatient 3. Current tobacco use, patient's aware of regarding her back cessation, and not wanting to have any devices or medications at this time, patient will quit on her own 4. Obstructive sleep apnea, on CPAP machine, for which she is currently compliant 5. BMI of 27 6. Covid vaccination Status, currently requiring the booster shot her last vaccination was January 2021 Discharge condition stable asymptomatic Discharge Medication List Loratadine [Alavert] 10 mg PO DAILY 12/23/14 [History] PARoxetine [Paxil] 20 mg PO DAILY 12/23/14 [History] Cholecalciferol [Vitamin D3 (25 Mcg = 1000 Iu)] 25 mcg PO DAILY 10/19/21 [History] Fenofibrate Nanocrystallized [Fenofibrate] 145 mg PO DAILY 10/19/21 [History] Omeprazole Magnesium [PriLOSEC OTC] 20 mg PO DAILY 10/19/21 [History] Oxybutynin Chloride [Ditropan] 5 mg PO DAILY 10/19/21 [History] Rosuvastatin Calcium [Crestor] 10 mg PO DAILY #30 tab 10/20/21 [Rx]
[2021-10-20 22:27] LABS: Chol/HDL Ratio 7.48 Ratio
== END 2021-10-20 14:00 | disposition home or self-care (01) ==
LOC: EC 17:57 → 6NMEDSUR 22:26
PROVIDERS: ADMIT Family Medicine; ATTEND Family Medicine
DX: R07.2 Precordial pain (principal); E78.1 Pure hyperglyceridemia; I08.1 Rheumatic disorders of both mitral and tricuspid valves; F17.210 Nicotine dependence, cigarettes, uncomplicated; G47.33 Obstructive sleep apnea (adult) (pediatric); R05.9 Cough, unspecified; Z20.822 Contact with and (suspected) exposure to COVID-19; F41.0 Panic disorder [episodic paroxysmal anxiety]; H40.9 Unspecified glaucoma; J30.2 Other seasonal allergic rhinitis; Z71.6 Tobacco abuse counseling; Z79.899 Other long term (current) drug therapy; Z88.8 Allergy status to other drugs, medicaments and biological substances; Z88.0 Allergy status to penicillin; Z88.1 Allergy status to other antibiotic agents; Z98.51 Tubal ligation status; Z87.09 Personal history of other diseases of the respiratory system; Z82.49 Family history of ischemic heart disease and other diseases of the circulatory system; Z81.8 Family history of other mental and behavioral disorders; E66.9 Obesity, unspecified; Z68.27 Body mass index [BMI] 27.0-27.9, adult
CPT/HCPCS: 99285; 96372 ×2; 36415; 94660; 93005; 93306; 85379; 80053; 80048; 80061; 83735; 84484 ×2; 85025 ×2; 85610; 85730; 83036; 87635; 71046; G0378 ×2; J1644 ×2

== ENCOUNTER 2022-09-12 08:46 | Day surgery (SDC) | payer MEDICARE ==
[2022-09-11 11:41] VITALS: BMI 28.5
[~2022-09-12 08:46] MED LIST changes: -LIDOCAINE 1% 20 ML VIAL (10MG/ML) FOR IV START INTRADERMA PRN
[2022-09-12 10:13] VITALS: RESP 16; TEMP 97.8
[2022-09-12] MEDS ORDERED: LIDOCAINE 1% (10MG/ML) FOR IV START INTRADERMA ONE (10:29)
[2022-09-12] MEDS ORDERED: ONDANSETRON 4 MG/2 ML VIAL IVP ONE (10:29)
[2022-09-12] MEDS ORDERED: ONDANSETRON 4 MG/2 ML VIAL ONE (10:31)
--- NOTE | 2022-09-12 10:31 | P.GSHP ---
History of Present Illness H&P Date: 09/12/22 Chief Complaint: History of colon polyps This a 66-year-old female who's. History of colon polyps. Patient resents today for colonoscopy. Past Medical History Past Medical History: GERD/Reflux, Sleep Apnea/CPAP/BIPAP Additional Past Medical History / Comment(s): seasonal allergies, past hx of glaucoma, no longer needing rx, uses CPAP History of Any Multi-Drug Resistant Organisms: None Reported Past Surgical History: Breast Surgery, Tubal Ligation Additional Past Surgical History / Comment(s): nasal surgery polyps removed, benign aria breast bx, D&C, nasal skin lesion removed, post op N&V Past Anesthesia/Blood Transfusion Reactions: No Reported Reaction Smoking Status: Current every day smoker - Past Family History Mother Family Medical History: Deep Vein Thrombosis (DVT) Medications and Allergies Home Medications Medication Instructions Recorded Confirmed Type Loratadine [Alavert] 10 mg PO DAILY 12/23/14 09/12/22 History PARoxetine [Paxil] 20 mg PO DAILY 12/23/14 09/12/22 History Cholecalciferol [Vitamin D3 (25 25 mcg PO DAILY 10/19/21 09/12/22 History Mcg = 1000 Iu)] Omeprazole Magnesium [PriLOSEC OTC] 20 mg PO DAILY 10/19/21 09/12/22 History Oxybutynin Chloride [Ditropan] 5 mg PO DAILY 10/19/21 09/12/22 History Rosuvastatin Calcium [Crestor] 10 mg PO DAILY #30 tab 10/20/21 09/12/22 Rx Allergies Allergy/AdvReac Type Severity Reaction Status Date / Time gatifloxacin [From Tequin] Allergy ruptured Verified 09/12/22 10:06 tendon Penicillins Allergy Rash/Hives Verified 09/12/22 10:06 [id number] Reductase Allergy Unknown Verified 09/12/22 10:06 Inhibitor Surgical - Exam Vital Signs Temp Pulse Resp BP Pulse Ox 97.8 F 63 16 149/69 98 09/12/22 10:12 09/12/22 10:12 09/12/22 10:12 09/12/22 10:12 09/12/22 10:12 - General well developed, well nourished, no distress - Eyes PERRL - ENT normal pinna - Neck no masses - Respiratory normal expansion - Cardiovascular Rhythm: regular - Abdomen Abdomen: soft, non tender Assessment and Plan Assessment: History of colon polyps. We'll perform colonoscopy.
[2022-09-12] MEDS ORDERED: PROPOFOL 10 MG/ML 20 ML VIAL IV ONE (10:34)
--- NOTE | 2022-09-12 11:01 | P.OP ---
Date of Procedure: 09/12/22 Preoperative Diagnosis: History of colon polyps Postoperative Diagnosis: Right colon polyp Diverticulosis Procedure(s) Performed: Colonoscopy Anesthesia: MAC Surgeon: Basim Wilson Pathology: other (Right colon polyp) Condition: stable Disposition: PACU Description of Procedure: The patient's placed on the endoscopy table in the lateral position. She received IV sedation. Digital rectal exam performed. This revealed no ebonized. The flexible colonoscope was then placed patient anus and passed t hroughout the entire colon. The ileocecal valve was visualized. The cecum appeared normal. In the right colon there was a small peduncular polyp. This removed with the snare and forcep. Scope withdrawn. Remainder the ascending and transverse colon appeared normal. In the descending and sigmoid colon there is mild diverticulosis. The scope was then brought back the rectum and this appeared normal. Scope withdrawn for patient.
[2022-09-12 11:27] VITALS: BP 122/64; PULSE 81
== END 2022-09-12 11:42 | disposition home or self-care (01) ==
LOC: ORWHC2ENDO 08:46
PROVIDERS: ATTEND Surgery
DX: Z12.11 Encounter for screening for malignant neoplasm of colon (principal); K63.5 Polyp of colon; K57.30 Diverticulosis of large intestine without perforation or abscess without bleeding; K21.9 Gastro-esophageal reflux disease without esophagitis; G47.33 Obstructive sleep apnea (adult) (pediatric); F17.200 Nicotine dependence, unspecified, uncomplicated; Z83.2 Family history of diseases of the blood and blood-forming organs and certain disorders involving the immune mechanism; Z86.010 Personal history of colon polyps; Z98.82 Breast implant status; Z98.51 Tubal ligation status; Z79.899 Other long term (current) drug therapy; Z79.1 Long term (current) use of non-steroidal anti-inflammatories (NSAID); Z88.0 Allergy status to penicillin; Z88.8 Allergy status to other drugs, medicaments and biological substances
CPT/HCPCS: 88305; 45380; 45385; J2405; J2704

== ENCOUNTER 2024-03-15 09:25 | Emergency (ER) | payer MEDICARE ==
[2024-03-15 09:41] VITALS: RESP 18
--- NOTE | 2024-03-15 09:49 | ED ---
General Adult HPI - General Chief complaint: Extremity Injury, Lower Stated complaint: L Upper Thigh Numbness Time Seen by Provider: 03/15/24 09:43 Source: patient, family, RN notes reviewed Mode of arrival: ambulatory Limitations: no limitations - History of Present Illness Initial comments: Patient is a pleasant 68-year-old female presenting to the emergency department with concern for left hip pain. Patient does have some mild chronic symptoms however worse around 3 weeks ago. Patient states the last couple days discomfort is radiating to the upper thigh. Patient has some numbness in this area as well. No leg weakness. Patient is ambulatory. No trauma to the region. No back pain. - Related Data Home Medications Medication Instructions Recorded Confirmed Loratadine [Alavert] 10 mg PO DAILY 12/23/14 09/12/22 PARoxetine [Paxil] 20 mg PO DAILY 12/23/14 09/12/22 Cholecalciferol [Vitamin D3 (25 25 mcg PO DAILY 10/19/21 09/12/22 Mcg = 1000 Iu)] Omeprazole Magnesium [PriLOSEC OTC] 20 mg PO DAILY 10/19/21 09/12/22 oxyBUTYnin chloride [Ditropan] 5 mg PO DAILY 10/19/21 09/12/22 Previous Rx's Medication Instructions Recorded Rosuvastatin Calcium [Crestor] 10 mg PO DAILY #30 tab 10/20/21 predniSONE [Deltasone] 2 tab PO DAILY #10 tab 03/15/24 Allergies Allergy/AdvReac Type Severity Reaction Status Date / Time gatifloxacin [From Tequin] Allergy ruptured Verified 03/15/24 09:41 tendon Penicillins Allergy Rash/Hives Verified 03/15/24 09:41 [id number] Reductase Allergy Unknown Verified 03/15/24 09:41 Inhibitor Review of Systems ROS Statement: Those systems with pertinent positive or pertinent negative responses have been documented in the HPI. ROS Other: All systems not noted in ROS Statement are negative. Constitutional: Denies: fever Eyes: Denies: eye pain ENT: Denies: ear pain Respiratory: Denies: cough Cardiovascular: Denies: chest pain Musculoskeletal: Reports: as per HPI, arthralgia Neurological: Reports: as per HPI. Denies: weakness, abnormal gait Past Medical History Past Medical History: GERD/Reflux, Sleep Apnea/CPAP/BIPAP Additional Past Medical History / Comment(s): seasonal allergies, uses CPAP History of Any Multi-Drug Resistant Organisms: None Reported Past Surgical History: Breast Surgery, Tubal Ligation Additional Past Surgical History / Comment(s): nasal surgery polyps removed, benign aria breast bx, D&C, nasal skin lesion removed, post op N&V Past Anesthesia/Blood Transfusion Reactions: No Reported Reaction Past Psychological History: Panic Disorder Smoking Status: Current every day smoker - Past Family History Mother Family Medical History: Deep Vein Thrombosis (DVT) General Exam Limitations: no limitations General appearance: alert, in no apparent distress Head exam: Present: normocephalic Eye exam: Present: normal appearance Respiratory exam: Present: normal lung sounds bilaterally Cardiovascular Exam: Present: regular rate, normal rhythm Expanded Peripheral pulses: 2+: Posterior Tibialis (R), Posterior Tibialis (L), Dorsalis Pedis (R), Dorsalis Pedis (L) GI/Abdominal exam: Present: soft. Absent: tenderness Extremities exam: Present: tenderness (Mild tenderness left lateral and anterior hip). Absent: pedal edema, calf tenderness Back exam: Present: normal inspection. Absent: vertebral tenderness Neurological exam: Present: alert. Absent: motor sensory deficit Psychiatric exam: Present: normal affect, normal mood Skin exam: Present: normal color Course Vital Signs 03/15/24 09:35 Temperature 98.7 F Pulse Rate 80 Respiratory 18 Rate Blood Pressure 126/72 O2 Sat by Pulse 96 Oximetry Medical Decision Making - Medical Decision Making Was pt. sent in by a medical professional or institution (, PA, SEAFOOD MANAGER, urgent care, hospital, or longterm...) When possible be specific @ -No Did you speak to anyone other than the patient for history (EMS, parent, family, police, friend...)? What history was obtained from this source @ -No Did you review nursing and triage notes (agree or disagree)? Why? @ -I reviewed and agree with nursing and triage notes Were old charts reviewed (outside hosp., previous admission, EMS record, old EKG, old radiological studies, urgent care reports/EKG's, longterm records)? Report findings @ -No old charts were reviewed Differential Diagnosis (chest pain, altered mental status, abdominal pain women, abdominal pain men, vaginal bleeding, weakness, fever, dyspnea, syncope, headache, dizziness, GI bleed, back pain, seizure, CVA, palpatations, mental health, musculoskeletal)? @ -Differential Musculoskeletal Muscular strain, contusion, ligament sprain, fracture, arthritis, septic arthritis, bursitis, cellulitis, muscle spasm, nerve compression, DVT, arterial occlusion, herpes zoster, electrolyte abnormality, tumor.... This is not meant to be in all inclusive list EKG interpreted by me (3pts min.). @ -As above X-rays interpreted by me (1pt min.). @ -Left hip and pelvis x-ray were does not reveal any acute abnormality CT interpreted by me (1pt min.). @ -None done U/S interpreted by me (1pt. min.). @ -None done What testing was considered but not performed or refused? (CT, X-rays, U/S, labs)? Why? @ -None What meds were considered but not given or refused? Why? @ -None Did you discuss the management of the patient with other professionals (professionals i.e. , PA, SEAFOOD MANAGER, lab, RT, psych nurse, social media project manager, cork sorter, teacher, air antisubmarine officer, case advocate)? Give summary @ -No Was smoking cessation discussed for >3mins.? @ -No Was critical care preformed (if so, how long)? @ -No Were there social determinants of health that impacted care today? How? (Homelessness, low income, unemployed, alcoholism, drug addiction, transportation, low edu. Level, literacy, decrease access to med. care, intermediate, rehab)? @ -No Was there de-escalation of care discussed even if they declined (Discuss DNR or withdrawal of care, Hospice)? DNR status @ -No What co-morbidities impacted this encounter? (DM, HTN, Smoking, COPD, CAD, Cancer, CVA, ARF, Chemo, Hep., AIDS, mental health diagnosis, sleep apnea, morbid obesity)? @ -None Was patient admitted / discharged? Hospital course, mention meds given and route, prescriptions, significant lab abnormalities, going to OR and other pertinent info. @ -Patient presents with hip discomfort with radiation to the anterior thigh. Patient is updated on results. Patient will be started on a short course of steroids and recommended follow-up with primary and orthopedics. Also recommended to consider physical therapy. Undiagnosed new problem with uncertain prognosis? @ -No Drug Therapy requiring intensive monitoring for toxicity (Heparin, Nitro, Insu margaux, Cardizem)? @ -No Were any procedures done? @ -No Diagnosis/symptom? @ -Hip strain Acute, or Chronic, or Acute on Chronic? @ -Acute Uncomplicated (without systemic symptoms) or Complicated (systemic symptoms)? @ -Default Side effects of treatment? @ -No Exacerbation, Progression, or Severe Exacerbation? @ -No Poses a threat to life or bodily function? How? (Chest pain, [place], [place], pneumonia, PE, COPD, DKA, ARF, appy, cholecystitis, CVA, Diverticulitis, Homicidal, Suicidal, threat to staff... and all critical care pts) @ -No Disposition Clinical Impression: Hip strain Disposition: HOME SELF-CARE Condition: Stable Instructions (If sedation given, give patient instructions): Hip Sprain (ED), Hip Pain (ED) Additional Instructions: Prescription sent to pharmacy. [id number] Tylenol as needed. Please follow-up with primary care physician and orthopedics, number provided. Consider physical therapy. Return for increased pain, weakness, swelling, worsening symptoms or other concern Prescriptions: predniSONE [Deltasone] 2 tab PO DAILY #10 tab Is patient prescribed a controlled substance at d/c from ED?: No Referrals: Maggie Oglesby [Primary Care Provider] - 1-2 days Nina Schultz DO [Doctor of Osteopathic Medicine] - 1-2 days Time of Disposition: 10:28
--- NOTE | 2024-03-15 10:09 | XR ---
EXAMINATION TYPE: XR Hip 2 views LT and AP Pelvis DATE OF EXAM: 03/15/2024 Comparison: None Clinical History: 68-year-old female pain, no injury Findings: Osteopenia. The SI joints appear symmetric and intact as does the pubic symphysis. It is mild margina l spurring of the hip joints but with relative preservation of joint space at this time. No acute fra cture, subluxation, or dislocation. Impression: Osteopenia. No acute osseous abnormality seen.
[2024-03-15 10:36] VITALS: BP 132/68; PULSE 78; TEMP 97.6
== END 2024-03-15 10:35 | disposition home or self-care (01) ==
LOC: EC 09:25
DX: S76.012A Strain of muscle, fascia and tendon of left hip, initial encounter (principal); F17.200 Nicotine dependence, unspecified, uncomplicated; Z88.0 Allergy status to penicillin; Z88.8 Allergy status to other drugs, medicaments and biological substances; X58.XXXA Exposure to other specified factors, initial encounter
CPT/HCPCS: 73502; 99283

== ENCOUNTER 2024-10-18 12:28 | Day surgery (SDC) | payer MEDICARE ==
[~2024-10-18 12:28] MED LIST changes: +LIDOCAINE 1% (10MG/ML) FOR IV START INTRADERMA PRN
[2024-10-18] MEDS: IV FLUID CONTINUATION 1,000 ML IV ONE (12:45)
[2024-10-18 13:06] VITALS: RESP 16; TEMP 97.1
[2024-10-18] MEDS ORDERED: PROPOFOL 10 MG/ML 20 ML VIAL IV ONE (14:12)
[2024-10-18] MEDS ORDERED: ONDANSETRON 4 MG/2 ML VIAL ONE (14:12)
--- NOTE | 2024-10-18 14:17 | P.GSHP ---
History of Present Illness H&P Date: 10/18/24 Chief Complaint: History of colon polyps Is a 69-year-old female who presents today for colonoscopy. Patient has previous history of colon polyps. Past Medical History Past Medical History: GERD/Reflux, Hyperlipidemia, Sleep Apnea/CPAP/BIPAP Additional Past Medical History / Comment(s): seasonal allergies, uses CPAP History of Any Multi-Drug Resistant Organisms: None Reported Past Surgical History: Breast Surgery, Tubal Ligation Additional Past Surgical History / Comment(s): nasal surgery polyps removed, benign aria breast bx, D&C, nasal skin lesion removed, aria cataract removal Past Anesthesia/Blood Transfusion Reactions: Postoperative Nausea & Vomiting (PONV) Smoking Status: Current every day smoker - Past Family History Mother Family Medical History: Deep Vein Thrombosis (DVT) Medications and Allergies Home Medications Medication Instructions Recorded Confirmed Type Loratadine [Alavert] 10 mg PO DAILY 12/23/14 10/18/24 History PARoxetine [Paxil] 20 mg PO DAILY 12/23/14 10/18/24 History Cholecalciferol [Vitamin D3 (25 25 mcg PO DAILY 10/19/21 10/18/24 History Mcg = 1000 Iu)] Omeprazole Magnesium [PriLOSEC OTC] 20 mg PO DAILY 10/19/21 10/18/24 History oxyBUTYnin chloride [Ditropan] 5 mg PO DAILY 10/19/21 10/18/24 History Rosuvastatin Calcium [Crestor] 10 mg PO DAILY #30 tab 10/20/21 10/18/24 Rx [id number] 1 tab PO DAILY 10/12/24 10/18/24 History Vit E (Unk) 1 tab PO DAILY 10/12/24 10/18/24 History Allergies Allergy/AdvReac Type Severity Reaction Status Date / Time gatifloxacin [From Tequin] Allergy ruptured Verified 10/18/24 12:59 tendon Penicillins Allergy Rash/Hives Verified 10/18/24 12:59 [id number] Reductase Allergy Unknown Verified 10/18/24 12:59 Inhibitor Surgical - Exam Vital Signs Temp Pulse Resp BP Pulse Ox 97.1 F L 77 16 150/79 94 L 10/18/24 12:58 10/18/24 12:58 10/18/24 12:58 10/18/24 12:58 10/18/24 12:58 - General well developed, well nourished, no distress - Eyes PERRL - ENT normal pinna - Neck no masses - Respiratory normal expansion - Cardiovascular Rhythm: regular - Abdomen Abdomen: soft, non tender Assessment and Plan Assessment: History of colon polyps. Will perform colonoscopy.
--- NOTE | 2024-10-18 14:31 | P.OP ---
Date of Procedure: 10/18/24 Preoperative Diagnosis: History of colon polyps Postoperative Diagnosis: diverticulosis Procedure(s) Performed: Colonoscopy Anesthesia: MAC Surgeon: Basim Wilson Pathology: none sent Condition: stable Disposition: PACU Description of Procedure: The patient is placed on the endoscopy table in the lateral position. She received IV sedation. Digital rectal exam was performed. This revealed no abnormalities. The flexible colonoscope was then placed patient anus passed throughout the entire colon. The ileocecal valve was visualized. The cecum, ascending and transverse colon appeared normal. In the descending sigmoid colon there was mild diverticular changes. The scope was brought back to the rectum this appeared normal. Scope withdrawn for the patient.
[2024-10-18 14:47] VITALS: BP 131/81; PULSE 67
== END 2024-10-18 15:17 | disposition home or self-care (01) ==
LOC: ORWHC2ENDO 12:28
PROVIDERS: ATTEND Surgery
DX: Z12.11 Encounter for screening for malignant neoplasm of colon (principal); K57.30 Diverticulosis of large intestine without perforation or abscess without bleeding; E78.5 Hyperlipidemia, unspecified; K21.9 Gastro-esophageal reflux disease without esophagitis; F41.0 Panic disorder [episodic paroxysmal anxiety]; G47.33 Obstructive sleep apnea (adult) (pediatric); J30.2 Other seasonal allergic rhinitis; F17.200 Nicotine dependence, unspecified, uncomplicated; Z86.0100 Personal history of colon polyps, unspecified; Z99.89 Dependence on other enabling machines and devices; Z88.0 Allergy status to penicillin; Z88.8 Allergy status to other drugs, medicaments and biological substances; Z98.51 Tubal ligation status; Z98.49 Cataract extraction status, unspecified eye
CPT/HCPCS: 45378